=== PATIENT | female | born 1970 | race Caucasian/White ===

== ENCOUNTER 2019-09-06 18:19 | Emergency (ER) | payer SELFPAY ==
[2019-09-06 18:37] VITALS: BP 143/87
--- NOTE | 2019-09-06 20:19 | ER Document Report ---
HPI - HPI Time Seen by Provider: 09/06/19 20:16 Pain Level: Denies Notes: Patient is a 49-year-old female presenting to the emergency department requesting a work note. Patient reports she had the flu 6 days ago. She states she has been symptom-free for the last 3 days and wishes to return to work but cannot without a note. - CONSTITUTIONAL Constitutional: DENIES: Fever, Chills - RESPIRATORY Respiratory: REPORTS: Coughing - REPRODUCTIVE Reproductive: DENIES: : Past Medical History - General Information source: Patient - Social History Smoking Status: Current Every Day Smoker Chew tobacco use (# tins/day): No Frequency of alcohol use: None Drug Abuse: None Family History: Reviewed & Not Pertinent Patient has suicidal ideation: No Patient has homicidal ideation: No - Medical History Medical History: Negative Surgical Hx: Negative - Immunizations Immunizations up to date: Yes Vertical Provider Document - CONSTITUTIONAL Notes: PHYSICAL EXAMINATION: GENERAL: Well-appearing, well-nourished and in no acute distress. HEAD: Atraumatic, normocephalic. EYES: Pupils equal round extraocular movements intact, conjunctiva are normal. ENT: Nares patent NECK: Normal range of motion LUNGS: No respiratory distress Musculoskeletal: Normal range of motion NEUROLOGICAL: Normal speech, normal gait. PSYCH: Normal mood, normal affect. SKIN: Warm, Dry, normal turgor, no rashes or lesions noted. - INFECTION CONTROL TRAVEL OUTSIDE OF THE [place] IN LAST 30 DAYS: No Course - Re-evaluation Re-evalutation: No abnormal has findings on exam. - Vital Signs Vital signs: Temp Pulse Resp BP Pulse Ox 99.9 F 106 H 18 143/87 H 94 09/06/19 18:37 09/06/19 18:37 09/06/19 18:37 09/06/19 18:37 09/06/19 18:37 Discharge - Discharge Clinical Impression: Encounter for work note, Cough Condition: Stable Disposition: HOME, SELF-CARE Additional Instructions: You may return to work without restrictions tomorrow. Forms: Return to Work Referrals: LOCALMD,NO [NO LOCAL MD] - Follow up as needed
== END 2019-09-06 20:22 | disposition home or self-care (01) ==
LOC: ER 18:19
DX: R05 Cough (principal); F17.200 Nicotine dependence, unspecified, uncomplicated
CPT/HCPCS: 99281